=== PATIENT | female | born 1935 | race Caucasian/White ===

== ENCOUNTER 2017-03-10 16:32 | Inpatient (IN) | payer OTHER ==
[~2017-03-10] VITALS: Ht 162.6 cm; Wt 66.5 kg
--- NOTE | ~2017-03-10 | HC ---
[facility] [place] [address] CONSULTATION Name: BHAVANI AGUIRRE Room #: 454-P ADM IN M.R.#: [id number] Admission: 03/10/17 Attend Phys: Darrian Butt MD Discharge: Date of : 35 Report #: [id number] THIS REPORT FOR: //name// CC: Darrian Webster REASON FOR CONSULTATION: I was asked to evaluate concerning bilateral pneumonia. HISTORY OF PRESENT ILLNESS: The patient is an 81-year-old transferred from [facility] for evaluation of pneumonia. She has a history of diabetes, atrial fibrillation with a permanent pacemaker, right mastectomy for breast cancer and chronic kidney disease. She was hospitalized on February 06 with a community-acquired pneumonia. Treated with IV antibiotic therapy, then dismissed on doxycycline and Omnicef. She has had persisting cough. She then returned last week with persistent cough associated with dizziness, nausea and emesis. No fever, chills or sweats. During her workup, she had a CT scan which showed bilateral pulmonary infiltrates. One blood culture grew coag-negative staph, the other one is strep viridans. She had a YANIQUE echocardiogram, which showed no vegetation. She was treated with vancomycin, imipenem, and Levaquin and then switched to cefepime. Continues to have nonproductive cough. Her dizziness has continued. There is no vertigo. No nausea, vomiting now. No diarrhea. No dysuria or frequency. No rash. ALLERGIES: PENICILLIN. Tolerates cephalosporins. Also allergic to SULFA. MEDICATIONS: As noted on her MAR, now on vancomycin and aztreonam. PAST MEDICAL HISTORY: TIAs and stroke, coronary artery disease, DJD, congestive heart failure, asthma, COPD, has a defibrillator, hypertension, atrial fibrillation, she had a mastectomy on the right for breast cancer, diabetes, gout, gastroesophageal reflux, hysterectomy, cataract surgery, stage III kidney disease, hypothyroidism, syncope, and glaucoma. FAMILY HISTORY: Heart disease, diabetes, and hypertension. SOCIAL HISTORY: Past smoker, no significant alcohol intake. REVIEW OF SYSTEMS: As noted above with no additions. PHYSICAL EXAMINATION: VITAL SIGNS: Afebrile, hemodynamically stable. GENERAL: She is alert and cooperative and pleasant, in no acute distress. SKIN: Unremarkable. LYMPH: Unremarkable. She had a right breast mastectomy incision unremarkable. HEENT: Unremarkable. There was no vertigo identified. NECK: Supple. No bruits. [address] [address] CONSULTATION Name: BHAVANI AGUIRRE Room #: 454-P [facility] IN .R.#: [id number] Admission: 03/10/17 Attend Phys: Darrian Butt MD Discharge: Date of : 35 Report #: [id number] HEART: Regular, without murmur. ABDOMEN: Soft, mild tenderness in the epigastric region. No hepatosplenomegaly or mass. CHEST: Crackles heard in the bases bilaterally. No consolidation. EXTREMITIES: Unremarkable. NEUROLOGIC: Nonfocal. LABORATORY STUDIES: Outside blood cultures as noted above. Hemoglobin is 8, white count 7.6, platelet count 223,000. INR 2.3. Sodium 142, potassium 4.2, bicarbonate 31, creatinine 2.6. Liver function tests normal. Albumin 1.9. Differential 57% segs, 24% lymphs, 10% monos, eosinophils, 3%, basophils. BNP 2003 was 127. Chest x-ray, patchy infiltrate, atelectasis in the right mid lung laterally left lung base, small dependent effusions. IMPRESSION: An 81-year-old with recurrent pulmonary infiltrates in the setting of atrial fibrillation, gastroesophageal reflux, chronic obstructive pulmonary disease. She has been on antibiotics now for approximately one month. I am suspecting aspiration may be a component here. She does have a history of stroke and would be concerned that ischemia could be causing some of her dizziness and contributing here. PLAN: I would recommend narrowing her antibiotic coverage. Obtain sputum sample if possible. Would consider video swallow and continue with antacid therapy. We will screen for legionella and fungus. <ELECTRONICALLY SIGNED> By: Fernando Brandon MD 03/12/17 0800 [id number] Fernando Brandon MD /nt
[~2017-03-10 16:32] MED LIST: ACETAMINOPHEN650 M5 PO; ALBUTEROL2.5 MG/0.1 INH; ALLOPURINOL 10100 M1 PO; ASPIRIN EC81 M1 PO; ATENOLOL 25MG T25 M1 PO; ATENOLOL 50 MG50 M1 PO; CARVEDILOL12.5 MG PO; CIPRO250 M1 PO; COUMADIN 2 MG TA2 M1 PO; COUMADIN 5 MG TA5 M1 PO; COZAAR 25 MG TA25 MG PO; COZAAR 50 MG TA50 MG PO; DEMADEX10 MG PO; DIOVAN HCT 1601 EAC1 PO; FISH OIL 1,001000 M1 PO; KLOR-CON PO; LEVAQUIN 500 M500 M4 PO; LUMIGAN2.5 M1 OPHTHALMIC; PACERONE 200 M200 M1 PO; PACERONE 200 M200 MG PO; PREDNISONE 10 M10 M1; PRILOSEC 20 MG20 MG PO; RANITIDINE 150150 M1 PO; SPIRONOLACTONE25 M1 PO; SYNTHROID100 MCG PO; SYNTHROID50 MCG PO; SYNTHROID75 MCG PO; ZANTAC 150MG T150 M1 PO; ZOCOR 20 MG TAB20 M1 PO
[2017-03-10 18:40] VITALS: BP 133/63
[2017-03-10 20:01] VITALS: BP 128/74
[2017-03-10] MEDS ORDERED: ATIVAN0.5 MG PO (21:01)
[2017-03-10] MEDS ORDERED: MAXZIDE-25 MG1 EACH PO (21:01)
[2017-03-10] MEDS ORDERED: LATANOPROST 0.2.5 ML OPHTHALMIC (21:03)
[2017-03-10] MEDS ORDERED: MAXIPIME 1 GM/D51 G1 IV (21:13)
[2017-03-10] MEDS ORDERED: ROBITUSSIN100 MG/53 PO (21:14)
[2017-03-10] MEDS ORDERED: LEVALBUTER1.25 MG/0. INH (21:15)
[2017-03-10] MEDS ORDERED: NYSTATIN 1100000 U/M PO (21:17)
[2017-03-10] MEDS ORDERED: MAG-AL LIQUID30 ML PO (21:17)
[2017-03-10] MEDS ORDERED: PROTONIX40 M1 PO (21:18)
[2017-03-10 21:21] LABS: ABSOLUTE NEUTROPHILS 4.5 thou/uL (1.4-8.2); BASOPHILS 3.4 % (0.0-2.0); EOSINOPHILS 3.4 % (0.0-3.0); HEMATOCRIT 26.7 % (37.0-47.0); HEMOGLOBIN 8.7 gm/dL (12.0-15.0); LYMPHOCYTES 24.9 % (24.0-44.0); MCH 29.9 pg (26.0-34.0); MCHC 32.5 g/dL (28.0-37.0); MCV 92.3 fL (80.0-100.0); MONOCYTES 10.7 % (1.0-8.0); PLATELET COUNT 241 thou/uL (150-400); POLYS 57.6 % (36.0-66.0); RBC 2.89 mil/uL (4.20-5.00); RDW 18.1 % (10.5-14.5); WBC 7.8 thou/uL (4.0-11.0)
[2017-03-10 21:24] LABS: MANUAL DIFF NO
[2017-03-10 21:34] LABS: ANION GAP 7 mmol/L (7-16); BUN 47 mg/dL (7-18); CALCIUM 8.4 mg/dL (8.5-10.1); CHLORIDE 104 mmol/L (98-107); CO2 30 mmol/L (21-32); CREATININE 2.8 mg/dL (0.6-1.0); GLUCOSE 90 mg/dL (74-106); POTASSIUM 4.2 mmol/L (3.5-5.1); SODIUM 141 mmol/L (136-145)
[2017-03-10 21:45] LABS: ALKALINE PHOSPHATASE 69 U/L (46-116); NT-PRO BRAIN NAT PEPTIDE 2327 pg/mL (<300); SGOT 16 U/L (15-37); SGPT 14 U/L (30-65); TOTAL BILIRUBIN 0.4 mg/dL (<0.1-1.0); TOTAL PROTEIN 5.8 g/dL (6.4-8.2); TROPONIN-I < 0.04 ng/mL (<0.04-0.07)
[2017-03-11] VITALS: BP 141/60
[2017-03-11 04:41] VITALS: BP 114/72
[2017-03-11 05:22] LABS: HEMATOCRIT 25.4 % (37.0-47.0); HEMOGLOBIN 8.1 gm/dL (12.0-15.0); MCH 29.5 pg (26.0-34.0); MCHC 31.9 g/dL (28.0-37.0); MCV 92.5 fL (80.0-100.0); RBC 2.75 mil/uL (4.20-5.00); RDW 17.9 % (10.5-14.5); WBC 7.6 thou/uL (4.0-11.0)
[2017-03-11 05:25] LABS: INR 2.3; PROTIME 23.4 Seconds (9.3-11.4)
[2017-03-11 05:31] LABS: ALBUMIN 1.9 g/dL (3.4-5.0); CALCIUM 8.4 mg/dL (8.5-10.1); CREATININE 2.6 mg/dL (0.6-1.0); POTASSIUM 4.2 mmol/L (3.5-5.1); TOTAL BILIRUBIN 0.4 mg/dL (<0.1-1.0); TOTAL PROTEIN 5.7 g/dL (6.4-8.2)
[2017-03-11 08:03] VITALS: BP 127/92
[2017-03-11 11:37] VITALS: BP 125/64
[2017-03-11 12:07] LABS: FOLIC ACID 9.1 ng/mL (8.6-58.9)
[2017-03-11 12:24] LABS: % SATURATION 15 % (20-39); IRON 24 ug/dL (50-170); TIBC 163 ug/dL (250-450); UIBC 139 ug/dL
[2017-03-11 15:14] VITALS: BP 106/86
[2017-03-11 19:11] LABS: HIV ANTIBODY Non Reactive (Non Reactive)
[2017-03-11 19:45] VITALS: BP 130/54
[2017-03-12 03:45] VITALS: BP 106/46
[2017-03-12 04:46] LABS: HEMATOCRIT 25.2 % (37.0-47.0); HEMOGLOBIN 8.1 gm/dL (12.0-15.0); MCH 29.6 pg (26.0-34.0); MCHC 32.1 g/dL (28.0-37.0); MCV 92.4 fL (80.0-100.0); RBC 2.73 mil/uL (4.20-5.00); RDW 18.1 % (10.5-14.5); WBC 9.8 thou/uL (4.0-11.0)
[2017-03-12 05:07] LABS: CREATININE 2.5 mg/dL (0.6-1.0); POTASSIUM 3.7 mmol/L (3.5-5.1)
[2017-03-12 07:49] VITALS: BP 136/55
[2017-03-12 12:11] VITALS: BP 105/48
[2017-03-12 15:54] VITALS: BP 116/51
[2017-03-12 20:00] VITALS: BP 133/45
[2017-03-13 04:00] VITALS: BP 126/41
[2017-03-13 07:38] VITALS: BP 178/52
[2017-03-13 10:19] LABS: HEMATOCRIT 24.8 % (37.0-47.0); HEMOGLOBIN 7.9 gm/dL (12.0-15.0); MCH 29.8 pg (26.0-34.0); MCV 93.1 fL (80.0-100.0); RBC 2.67 mil/uL (4.20-5.00); RDW 17.9 % (10.5-14.5); WBC 8.8 thou/uL (4.0-11.0)
[2017-03-13 10:29] LABS: CALCIUM 7.8 mg/dL (8.5-10.1); CREATININE 2.3 mg/dL (0.6-1.0); POTASSIUM 3.5 mmol/L (3.5-5.1)
[2017-03-13 11:27] VITALS: BP 123/79
[2017-03-13 15:19] VITALS: BP 122/58
[2017-03-13 16:08] LABS: HISTOPLASMA MYCELIAL-ID Negative (Negative)
[2017-03-13 19:37] VITALS: BP 111/49
[2017-03-13 22:07] LABS: HISTOPLASMA MYCELIAL-CF Negative (Neg:<1:2); HISTOPLASMA YEAST BY CF Negative (Neg:<1:2)
[2017-03-14 03:23] VITALS: BP 113/51
[2017-03-14 06:00] LABS: HEMATOCRIT 22.4 % (37.0-47.0); HEMOGLOBIN 7.3 gm/dL (12.0-15.0); MCHC 32.6 g/dL (28.0-37.0); MCV 91.9 fL (80.0-100.0); RBC 2.44 mil/uL (4.20-5.00); WBC 8.1 thou/uL (4.0-11.0)
[2017-03-14 06:14] LABS: CALCIUM 7.3 mg/dL (8.5-10.1); POTASSIUM 3.7 mmol/L (3.5-5.1)
[2017-03-14 07:50] VITALS: BP 120/44
[2017-03-14 17:02] VITALS: BP 130/54
[2017-03-14 18:24] LABS: PROTIME 20.8 Seconds (9.3-11.4)
[2017-03-14 20:00] VITALS: BP 124/55
[2017-03-15 03:59] VITALS: BP 121/58
[2017-03-15 05:25] LABS: HEMATOCRIT 23.8 % (37.0-47.0); HEMOGLOBIN 7.7 gm/dL (12.0-15.0); MCH 30.1 pg (26.0-34.0); MCHC 32.4 g/dL (28.0-37.0); RBC 2.55 mil/uL (4.20-5.00); WBC 8.2 thou/uL (4.0-11.0)
[2017-03-15 05:35] LABS: CALCIUM 7.8 mg/dL (8.5-10.1); CREATININE 1.9 mg/dL (0.6-1.0); POTASSIUM 3.8 mmol/L (3.5-5.1)
[2017-03-15 05:37] LABS: PROTIME 20.9 Seconds (9.3-11.4)
[2017-03-15 07:25] VITALS: BP 139/65
[2017-03-15 10:59] VITALS: BP 122/57
[2017-03-15] MEDS ORDERED: CEFDINIR300 MG PO (14:59)
[2017-03-15] MEDS ORDERED: AZITHROMYCIN 2250 MG PO (14:59)
== END 2017-03-15 17:48 | DRG 682 ==
LOC: 4W 16:32
PROVIDERS: Hospitalist; Internal Medicine; Nurse Practitioner Family; Specialist
DX: N17.9 Acute kidney failure, unspecified (principal); J69.0 Pneumonitis due to inhalation of food and vomit; I13.0 Hypertensive heart and chronic kidney disease with heart failure and stage 1 through stage 4 chronic kidney disease, or unspecified chronic kidney disease; K21.9 Gastro-esophageal reflux disease without esophagitis; I48.2 Chronic atrial fibrillation; J44.9 Chronic obstructive pulmonary disease, unspecified; E11.22 Type 2 diabetes mellitus with diabetic chronic kidney disease; I50.9 Heart failure, unspecified; N18.3 Chronic kidney disease, stage 3 (moderate); I25.10 Atherosclerotic heart disease of native coronary artery without angina pectoris; M19.90 Unspecified osteoarthritis, unspecified site; M10.9 Gout, unspecified; H40.9 Unspecified glaucoma; E78.5 Hyperlipidemia, unspecified; D64.9 Anemia, unspecified; K59.00 Constipation, unspecified; Z79.82 Long term (current) use of aspirin; Z90.11 Acquired absence of right breast and nipple; Z88.0 Allergy status to penicillin; Z88.2 Allergy status to sulfonamides; Z86.73 Personal history of transient ischemic attack (TIA), and cerebral infarction without residual deficits; Z85.3 Personal history of malignant neoplasm of breast; Z87.891 Personal history of nicotine dependence; Z86.14 Personal history of Methicillin resistant Staphylococcus aureus infection; Z95.0 Presence of cardiac pacemaker; Z98.49 Cataract extraction status, unspecified eye; Z90.710 Acquired absence of both cervix and uterus; Z83.3 Family history of diabetes mellitus; Z79.899 Other long term (current) drug therapy; Z82.49 Family history of ischemic heart disease and other diseases of the circulatory system; Z82.0 Family history of epilepsy and other diseases of the nervous system
CPT/HCPCS: 10047

== ENCOUNTER 2017-05-05 20:06 | Inpatient (IN) | payer OTHER ==
[~2017-05-05] VITALS: Ht 162.6 cm; Wt 76.7 kg
--- NOTE | ~2017-05-05 | HC ---
[facility] [place] [address] CONSULTATION Name: BHAVANI AGUIRRE Room #: 457-P ADM IN M.R.#: [id number] Admission: 05/06/17 Attend Phys: Hosea Alfaro MD Discharge: Date of : 35 Report #: [id number] THIS REPORT FOR: //name// CC: Hosea Mann Eleanor DATE OF SERVICE: 05/06/2017 REFERRING PROVIDER: Hosea Alfaro MD REASON FOR CONSULTATION: Hypoxemic respiratory failure. CHIEF COMPLAINT: Shortness of breath. HISTORY OF PRESENT ILLNESS: Our group was asked to see the patient in consultation while hospitalized at [facility]. The patient was seen this morning along with her son who is at the bedside, pleasant 81-year-old woman with a past pulmonary history significant for COPD, had been on bronchodilators at home, recently admitted to [facility] at the end of February of this year for complaints of weight loss and pneumonia. We were not asked to evaluate at that time. The patient subsequently had been discharged to rehab at [facility] and then subsequently to longterm at [facility] in [place], [place] just 3 days ago. The patient declined over the weekend with increasing shortness of breath. Son noted labored breathing and she was subsequently taken to the emergency department at [facility] and subsequently transferred here for further management. The patient noted to have findings of pulmonary edema with pleural effusions and increased pulmonary vascular congestion, placed on BiPAP overnight, no arterial blood gas available to review. The patient responded to diuretics, is now alert, off BiPAP, on low flow supplemental oxygen via nasal cannula. The patient may have had some mild cough with minimal sputum, no fevers or chills. ALLERGIES: Include PENICILLIN AND SULFA. PAST MEDICAL HISTORY: 1. Underlying cardiac history, exact details unclear as the pacer defibrillator in place, typically followed by Dr. Jose Yoder. 2. History of hypertension. 3. History of atrial fibrillation. 4. History of breast cancer status post right mastectomy and chemotherapy in 2000. 5. Gastroesophageal reflux disease. 6. Chronic obstructive pulmonary disease, severity not quantified. 7. Very remote history of tobacco use. 8. History of hysterectomy. 9. Chronic kidney disease stage III. [facility] [address] [place] [address] CONSULTATION Name: BHAVANI AGUIRRE Room #: 457-P [facility] IN ..#: [id number] Admission: 05/06/17 Attend Phys: Hosea Alfaro MD Discharge: Date of : 35 Report #: [id number] 10. Hypothyroidism. 11. History of glaucoma. 12. Anemia of unclear etiology, not worked up last admission. CURRENT INPATIENT MEDICATIONS: 1. Latanoprost eyedrops. 2. Vancomycin IV. 3. Ciprofloxacin IV. 4. Meropenem IV. 5. Methylprednisolone 62.5 mg twice daily. 6. Guaifenesin twice daily. 7. Synthroid 0.075. 8. DuoNebs q. 4 hours. SOCIAL HISTORY: Currently lives in longterm. also recently admitted to longterm in [place], [place] with remote tobacco history. FAMILY HISTORY: Noncontributory due to advanced age. REVIEW OF SYSTEMS: CONSTITUTIONAL: No fevers or chills. ENT: Denies any upper respiratory congestion, rhinorrhea or dysphagia. No prior swallow eval noted. CARDIOVASCULAR: Known cardiac history as described. No chest pain or palpitations. GASTROINTESTINAL: No nausea, vomiting, diarrhea, constipation or abdominal pain. GENITOURINARY: No dysuria, no frequency. INTEGUMENT: Denies any rash. MUSCULOSKELETAL: No joint pains or swelling. Some lower extremity edema noted. PHYSICAL EXAMINATION: VITAL SIGNS: Afebrile, pulse 60s, respiratory rate in the 20s, blood pressure 116/60, oxygen saturation 98% on 4 liters nasal cannula. GENERAL: This is a pleasant elderly woman, somewhat confused, but no distress. ENT: Clear oropharynx, Mallampati 1 airway, no thrush. NECK: Supple. No lymphadenopathy. Jugular venous pressure did appear slightly elevated. LUNGS: Diminished in the bases with occasional expiratory wheeze noted. Minimal basal inspiratory crackles also appreciated. CARDIOVASCULAR: Heart was regular. I did not note any murmurs. ABDOMEN: Soft, nontender, no masses, no hepatosplenomegaly. EXTREMITIES: Revealed trace to 1+ lower extremity edema. They are warm with 2+ pulses noted. Pulses were regular. INTEGUMENT: Without rash. [facility] [address] [place] [address] CONSULTATION Name: BHAVANI AGUIRRE EDUARDO Room #: 457-P [facility] IN M.R.#: [id number] Admission: 05/06/17 Attend Phys: Hosea Alfaro MD Discharge: Date of : 35 Report #: [id number] LABORATORY DATA: White blood cell count 16,000, hemoglobin 7, hematocrit 22, platelet count 129, MCV 80. Sodium 132, potassium 4.2, chloride 98, bicarbonate 23, BUN 31, creatinine 2.0, glucose 151, calcium 7.9, magnesium 1.5, albumin was 2.5. ProBNP was 20,320. I do not see a troponin. Chest x-ray as described. IMPRESSION: 1. Acute on chronic congestive heart failure, suspect some component may be to dietary indiscretion in a longterm facility. 2. Possible healthcare-associated pneumonia. 3. Anemia. Findings suggestive of iron deficiency, although most recent labs did show a low total iron binding capacity. I should argue against that, however, low iron and iron sat noted. 4. Chronic renal insufficiency. 5. Hypomagnesemia. 6. Mild hyponatremia. SUGGEST: 1. Ask cardiology to evaluate. The patient is well known to Dr. Yoder. 2. Consider GI evaluation. Reevaluate iron panel. 3. Continue with systemic steroids with taper. 4. Bronchodilators. 5. Deescalate antibiotics after cultures available. 6. Nasal MRSA screen. 7. Physical and occupational therapy. Assist with mobilization. 8. Additional recommendations to follow. We will follow along with you. Thank you for requesting our suggestions. By: 1154 [id number] Anirudh Jaramillo MD /nt
--- NOTE | ~2017-05-05 | HC ---
[facility] [place] [address] CONSULTATION Name: BHAVANI AGUIRRE Room #: 457-P ADM IN M.R.#: [id number] Admission: 05/06/17 Attend Phys: Hosea Alfaro MD Discharge: Date of : 35 Report #: [id number] THIS REPORT FOR: //name// CC: Hosea Webster DATE OF SERVICE: 05/07/2017 REASON FOR CONSULTATION: Acute on chronic kidney disease. HISTORY OF PRESENT ILLNESS: The patient is extremely well known to our service, followed as an outpatient with a baseline creatinine usually running closer to 2.5 and 2. Has been essentially ill for 4 months with varying combinations of pulmonary infiltrates, COPD exacerbations, volume overload, and heart failure, has now been readmitted to this hospital yesterday with volume overload and possible pneumonia, being treated for both, was given IV furosemide as well as antibiotics. Creatinine raymond from 2 to 2.5 to 2.8. We are asked to see her for further opinions. She has been admitted to several hospitals over these last 4 months including [facility] and [facility] and has been in a couple of different rehabilitations and nursing homes as well, but has not been able to get home. She has had some developing debility; she has also had some positive blood cultures along the way. She was admitted here yesterday with worsening shortness of breath after just a couple of days out of rehab at [facility] and over at the residential. She does have oxygen chronically at night and as a matter of fact is extremely chronically ill even at baseline before all this. As her creatinine has risen with diuresis, we were asked to see her. PAST MEDICAL HISTORY: Severe chronic obstructive pulmonary disease, home oxygen, pacer, defibrillator in place with history of valvular insufficiency, both mitral and tricuspid, previous atrial fibrillation, breast cancer status post mastectomy, and longstanding anemia. CURRENT MEDICATIONS: Listed include furosemide 80 mg IV b.i.d., amiodarone 200 mg daily, aspirin 81 mg daily, cefepime 2 g daily, Cipro 400 mg daily, Colace, Venofer IV, magnesium chloride p.o., Solu Medrol 62.5 mg twice a day, Synthroid 75 mcg daily, and vancomycin IV. FAMILY HISTORY: Noncontributory. SOCIAL HISTORY: Remote smoker. Both she and her are rather ill. He is now in [employer] as well. [address] [address] CONSULTATION Name: BHAVANI AGUIRRE Room #: 457-P [facility] IN [facility].#: [id number] Admission: 05/06/17 Attend Phys: Hosea Alfaro MD Discharge: Date of : 35 Report #: [id number] REVIEW OF SYSTEMS: GENERAL: She is weak, has a poor appetite. EYES: Her vision is reasonably good. ENT: Hearing okay and swallows okay. Denies mouth ulcers. ENDOCRINE: No diabetes. She does have hypothyroidism, on replacement. RESPIRATORY: Very easily short-winded with wheezing, no pleuritic pain. CARDIAC: Chronic and acute swelling of her legs. GASTROINTESTINAL: No nausea or vomiting, but poor appetite. No diarrhea or bloody stools. GENITOURINARY: Beck catheter in place. NEUROLOGIC: Generalized weakness and some memory deficit, but not too bad. MUSCULOSKELETAL: Has had some difficulty with arthritis over the years. PHYSICAL EXAMINATION: GENERAL: This is a chronically ill-appearing elderly lady looking older than her stated age. SKIN: Poor turgor. SKELETAL: Well developed, well nourished. HEENT: Extraocular movements appear to be full. Vision is intact. Hearing is intact. Mucous membranes dry. NECK: Supple. Neck veins are slightly distended. CHEST: Shows bilateral crackles with occasional wheezes. HEART: Regular, but distant. ABDOMEN: Soft and nontender, slightly distended. EXTREMITIES: Shows 2+ lower extremity edema. NEUROLOGIC: Shows generalized weakness. LABORATORY DATA: Urinalysis did not show evidence of infection or inflammation nor did it show proteinuria. Hemoglobin is only 6.7. Iron stores are very well. Albumin is 2.5 and creatinine is 2.7. ASSESSMENT: Acute on chronic kidney disease. She has very longstanding chronic kidney disease with kidneys without water reserve or compensation, certainly behaves more or less as a stage 4 chronic kidney disease. She has got smallish kidneys with thin cortices, also chronic damage, not much ability to compensate. She also has heart trouble, particularly valvular and chronic obstructive pulmonary disease with right-sided heart failure and cor pulmonale sequestering fluids, now recurrent exacerbations of chronic obstructive pulmonary disease, but she is on IV steroids, she has got some IV furosemide as well with it. That has made a difference, the antibiotics with steroids have made a difference, certainly hard to determine. She has had some urine output over a liter yesterday. In any event, her breathing is easier, but her creatinine is up, blood pressure is on the low side for sure but she is not on any medicines that would lower it further. Very difficult to determine the ideal state of fluid volume in this patient. She is on IV Lasix, probably will need to be stopped if her creatinine continues to rise despite the edema in her legs, probably need to [facility] [address] [place] [address] CONSULTATION Name: BHAVANI AGUIRRE Room #: 457-P [facility] IN .R.#: [id number] Admission: 05/06/17 Attend Phys: Hosea Alfaro MD Discharge: Date of : 35 Report #: [id number] keep those legs elevated in any regard and try to get some of that back into the central system. We will follow her along, but this will not be an easy case to manage with multisystem failure. She is extremely chronically ill to start with and has been acutely ill for 4 months and I really do hold out much hope for meaningful quality of life down the line. By: 19 23 Jesus Chairez MD /nt
--- NOTE | ~2017-05-05 | 2DMMODE ---
[facility] [address] [place] [address] 2 D/M-MODE ECHOCARDIOGRAM Name: AGUIRREBHAVANI Room #: 457-P ADM IN M.R.#: [id number] Admission: 05/06/17 Attend Phys: Yusra Alonzo Discharge: Date of : 35 Date of Service: 05/06/17 1706 Report #: [id number] THIS REPORT FOR: //name// APPROVED REPORT Study performed: 05/06/2017 14:50:18 EXAM: Comprehensive 2D, Doppler, and color-flow Echocardiogram Patient Location: Bedside Room #: [facility] Status: routine Other Information Study Quality: Adequate Indications Congestive Heart Failure Hx: ICD, ISCM, Afib, COPD 2D Dimensions RVDd: 48.62 mm LVEF(%): 42.32 (>50%) IVSd: 10.10 (7-11mm) LVOT Diam: 20.98 (18-24mm) LVDd: 59.60 mm PWd: 7.00 (7-11mm) Ascending Ao: 35.48 (22-36mm) LVDs: 46.98 (25-40mm) Aortic Root: 37.66 mm Dvaies's LVEF: 42.32 % Volumes Left Atrial Volume (Systole) Single Plane 4CH: 56.27 mL Single Plane 2CH: 72.21 mL LA ESV Index: 38.00 mL/m2 Aortic Valve AoV Peak Rich.: 1.52 m/s AO Peak Gr.: 9.20 mmHg LVOT Max P.77 mmHg LVOT Max V: 0.97 m/s JAILENE Vmax: 2.21 cm2 Mitral Valve E/A Ratio: 2.8 MV Decel. Time: 133.89 ms MV E Max Rich.: 1.41 m/s MV A Rich.: 0.50 m/s MV PHT: 38.83 ms [facility] [place] [address] 2 D/M-MODE ECHOCARDIOGRAM Name: TALON AGUIRREJED CLARK Room #: 457-P [facility] IN .R.#: [id number] Admission: 05/06/17 Attend Phys: Yusra Alonzo Discharge: Date of : 35 Date of Service: 05/06/17 1706 Report #: [id number] IVRT: 69.20 ms Pulmonary Valve PV Peak Rich.: 0.87 m/s PV Peak Gr.: 3.02 mmHg Tricuspid Valve TR Peak Rich.: 3.21 m/s RAP Estimate: 10.00 mmHg TR Peak Gr.: 41.24 mmHg PA Pressure: 51.00 mmHg Left Ventricle Left ventricle is mildly dilated. There is normal left ventricular wall thickness. Left ventricular systolic function is moderately decreased. LVEF is 40%. Grade III diastolic dysfunction Right Ventricle Right ventricle is mildly dilated. Right ventricle is mildly hypokinetic. Device lead is present in the right ventricle. Atria Left atrium is mildly dilated. Right atrium is mildly dilated. Aortic Valve Aortic valve leaflets are mildly sclerotic Trace aortic regurgitation. There is no aortic valvular stenosis. Mitral Valve Mild mitral annular calcification. Moderate mitral regurgitation. No evidence of mitral valve stenosis. Tricuspid Valve The tricuspid valve is normal in structure. There is mild tricuspid regurgitation. The right atrial pressure is estimated at 10 mmHg. There is moderate pulmonary hypertension with an estimated PAP 50-55mmHg. Pulmonic Valve The pulmonary valve is normal in structure. Trace pulmonic regurgitation. Great Vessels Aortic root is borderline dilated. The ascending aorta is normal in size. IVC is dilated and collapses <50% with inspiration. [facility] [address] [place] [address] 2 D/M-MODE ECHOCARDIOGRAM Name: TALON AGUIRREJED CLARK Room #: 457-P [facility] IN [facility].#: [id number] Admission: 05/06/17 Attend Phys: Yusra Alonzo Discharge: Date of : 35 Date of Service: 05/06/17 1706 Report #: [id number] Pericardium There is no pericardial effusion. A left and right pleural effusion was noted. <Conclusion> Left ventricular systolic function is moderately decreased. LVEF is 40%. Grade III diastolic dysfunction Both atria are mildly dilated. Aortic valve leaflets are mildly sclerotic, no aortic stenosis. Mild mitral annular calcification. Moderate mitral regurgitation. Pulmonary artery pressure of 40-45mmHg There is no pericardial effusion. <ELECTRONICALLY SIGNED> By: Jose Yoder MD, FACC 05/06/171705 05 05 Jose Yoder MD, FAC /INF
--- NOTE | ~2017-05-05 | H ---
[facility] [place] [address] HISTORY AND PHYSICAL Name: BHAVANI AGUIRRE Room #: 457-P ADM IN M.R.#: [id number] Admission: 05/06/17 Attend Phys: Hosea Alfaro MD Discharge: Date of : 35 Report #: [id number] THIS REPORT FOR: //name// CC: Hosea Webster DICTATED BY: Gayatri OSORIO ATTENDING PHYSICIAN: Darrian Butt M.D. PRIMARY CARE PHYSICIAN: Johnathan Webster DO. CHIEF COMPLAINT: Respiratory failure. HISTORY OF PRESENT ILLNESS: The patient is an 81-year-old female who was recently admitted here at [facility] in February of this year for zbcyo-yr-trrevxe kidney disease as well as healthcare-acquired pneumonia. She was treated with IV antibiotics and was discharged to [facility] on March 15. She just finished her rehab stay at [facility] last Saturday, which was 3 days ago and went to [facility] where she is planning to stay retirement. Her also lives at the same facility after extended hospital stays of his own. She also has known COPD. Her son states that she has been on and off oxygen in the last few months, but at home at times, she would wear 2 liters just at night. She has also developed CHF. Her last known BNP was 2745. She had echocardiogram done in February, which showed a normal EF of 50% to 55%, with no segmental wall motion abnormalities. During her admission in February, her creatinine had been up to 2.8 and then was down to 1.9 by the time she was discharged. She has been tried on various diuretics. At one point, she had also developed positive blood cultures. Her antibiotics had been adjusted multiple times. She ended up having YANIQUE done, which showed no vegetation. She was transferred from the [facility] facility to [facility] ER last night due to respiratory distress. Apparently, this came on rather suddenly and she was placed on BiPAP in the ER there. She did request to come back to [facility] because her doctors are here. She arrived on 10 liters nonrebreather and is very tachypneic. She does remain alert and is able to answer most questions. She is coughing frequently. She states she has been coughing up some green-colored thick sputum, but it is currently clear. Prior to transfer, she did receive IV antibiotics as well as Solu-Medrol and breathing treatments. She states her breathing is somewhat better. She will be admitted for further evaluation. PAST MEDICAL HISTORY: Recent healthcare-acquired pneumonia; stroke versus transient ischemic attack; coronary artery disease; CHF with a normal EF; COPD; hypertension; atrial fibrillation; GERD; iron-deficiency anemia; diabetes, not currently on any medication; history of MRSA; breast cancer; chronic kidney [address] [address] HISTORY AND PHYSICAL Name: BHAVANI AGUIRRE Room #: 457-P ADM IN M.R.#: [id number] Admission: 05/06/17 Attend Phys: Hosea Alfaro MD Discharge: Date of : 35 Report #: [id number] disease stage 3; hypothyroidism and glaucoma. PAST SURGICAL HISTORY: Defibrillator placement, mastectomy on the right, hysterectomy, cataract lens implant and bilateral tubal ligation. ALLERGIES: PENICILLINS and SULFA. CURRENT MEDICATIONS: Not currently available from [facility], but have been requested. SOCIAL HISTORY: The patient had been living at home with her spouse prior to the multiple extended hospitalizations between both her and her . He is currently at [facility]. She has been a smoker in the past years. No alcohol or drug use. She had been ambulating with a walker. FAMILY HISTORY: Significant for heart disease, diabetes, hypertension and Alzheimers. REVIEW OF SYSTEMS: A 12-point review of systems was reviewed with the patient. Otherwise negative unless stated in the HPI and prior records were reviewed. PHYSICAL EXAMINATION: GENERAL: The patient is an alert female in mild respiratory distress with tachypnea. VITAL SIGNS: Temperature is 98.9, heart rate is 68, respirations are 22 and blood pressure is 155/92. HEENT: PERRLA. Sclerae are nonicteric. Oral mucosa is pink and moist. NECK: Mild JVD is noted. CARDIAC: Heart tones are irregular, but no murmurs, rubs or gallops. RESPIRATORY: Breath sounds are clear, bilateral upper lobes. She does have some fine crackles in both bases, worse on the left than the right. Breathing is still somewhat labored and she is currently being placed on BiPAP. ABDOMEN: Round, soft, nontender and nondistended. She is using her abdominal muscles for breathing. VASCULAR: She does have bilateral lower extremity edema, 3+ bilaterally. Pedal pulses are 1+. Feet are warm. NEUROLOGIC: The patient is alert and oriented and fully aware of what is going on. She will follow all commands and is able to move all extremities equally. She does have some generalized weakness of the bilateral lower extremities, but no focal deficits. LABS AND DIAGNOSTICS: Blood work from [place] showed a WBC of 14.9, hemoglobin 7.6 and platelets 222,000. Sodium 131, potassium 4.4, BUN 32, creatinine 2.0 and glucose 130. Lactate is 1.0, magnesium 1.7. LFTs are within normal limits. BNP is 12,000. Troponins negative. INR is 3.49. U/A showed moderate leukocyte esterase, 20 to 30 wbcs, positive squamous cells and positive [facility] [address] [place] [address] HISTORY AND PHYSICAL Name: BHAVANI AGUIRRE Room #: 457-P ADM IN ..#: [id number] Admission: 05/06/17 Attend Phys: Hosea Alfaro MD Discharge: Date of : 35 Report #: [id number] bacteria. ASSESSMENT AND PLAN: 1. Rfhux-fr-kdsqzoy respiratory failure. The patient remains hypoxic. We will place her on BiPAP, breathing treatments and continue with IV steroids and mucolytics. We will consult pulmonary for further recommendations. The patient does not wish to be intubated at any time. 2. Kwjra-rj-ipmukya probable diastolic heart failure. Last known EF was normal. She does have some minor valvular insufficiencies that may be contributing. We will give a dose of IV Lasix and monitor urine output. We do need to be cautious with diuretics as she does have some chronic kidney disease stage 3. We will place her on a low sodium diet and fluid restriction. 3. Anemia. This is chronic. Her last known hemoglobin at discharge was 7.7. The patient denies seeing any black stools . Her most recent iron level was 24. Start iron supplementation. 4. Chronic kidney disease, stage 3. Last known creatinine earlier this year was 1.9, so she is at her baseline. Monitor renal status closely with these diuretics. 5. Possible pneumonia. We will consider this healthcare acquired. We will give IV antibiotics as well as Lasix and breathing treatments and hopefully this combination improves her respiratory status. Follow blood cultures. 6. Diabetes. It does not look like she is on any current medications. We will follow blood sugars and if elevated, add sliding scale insulin. 7. Atrial fibrillation, on Coumadin and her recent INR apparently was fixed and Coumadin has been held. Her INR is now down to 3.49. There are no signs of bleeding. We will continue to hold Coumadin today and repeat an INR in the morning. 8. Hypothyroidism. Continue Synthroid as at home. 9. DVT prophylaxis, place SCDs. 10. Code status: The patient has been very clear she wishes to be a DNR and DNI. The patient and family are okay with BiPAP and IV antibiotics at this time. We will continue to monitor. We will continue to follow the patient closely throughout the hospitalization and make changes based on clinical status. By: [id number] Darrian Butt MD /nt
[~2017-05-05 20:06] MED LIST changes: +ATIVAN0.5 MG PO; +AZITHROMYCIN 2250 MG PO; +CEFDINIR300 MG PO; +LATANOPROST 0.2.5 ML OPHTHALMIC; +LEVALBUTER1.25 MG/0. INH; +MAG-AL LIQUID30 ML PO; +MAXIPIME 1 GM/D51 G1 IV; +MAXZIDE-25 MG1 EACH PO; +NYSTATIN 1100000 U/M PO; +PROTONIX40 M1 PO; +ROBITUSSIN100 MG/53 PO
[2017-05-06 02:36] LABS: HEMATOCRIT 21.9 % (37.0-47.0); MCH 27.6 pg (26.0-34.0); MCHC 32.1 g/dL (28.0-37.0); RBC 2.55 mil/uL (4.20-5.00); RDW 17.8 % (10.5-14.5); WBC 16.4 thou/uL (4.0-11.0)
[2017-05-06 02:49] LABS: INR 2.7; PROTIME 26.2 Seconds (9.3-11.4)
[2017-05-06 03:01] LABS: ALBUMIN 2.5 g/dL (3.4-5.0); CALCIUM 7.9 mg/dL (8.5-10.1); MAGNESIUM 1.5 mg/dL (1.8-2.4); POTASSIUM 4.2 mmol/L (3.5-5.1); TOTAL BILIRUBIN 0.4 mg/dL (<0.1-1.0); TOTAL PROTEIN 6.2 g/dL (6.4-8.2)
[2017-05-06 03:25] VITALS: BP 118/56
[2017-05-06 07:19] VITALS: BP 131/58
[2017-05-06 07:41] LABS: URINE BILIRUBIN NEGATIVE (Negative); URINE BLOOD 1+ (Negative); URINE COLOR YELLOW; URINE GLUCOSE-RANDOM* NEGATIVE (Negative); URINE KETONES NEGATIVE (Negative); URINE LEUKOCYTES-REFLEX NEGATIVE (Negative); URINE PROTEIN (DIPSTICK) NEGATIVE (Negative); URINE SPECIFIC GRAVITY <= 1.005 (1.003-1.035); URINE UROBILINOGEN 0.2 E.U./dl (0.2-1.0)
[2017-05-06 08:21] LABS: AMORPHOUS URATES Moderate /LPF (None Seen); CASTS None Seen /LPF (None Seen); SQUAMOUS None Seen /LPF (0-3); URINE RBC None Seen /HPF (0-2); URINE WBC-REFLEX None Seen /HPF (0-5)
[2017-05-06 10:43] LABS: ABSOLUTE RETIC COUNT 0.0298 10^6/uL; OBSERVED RETIC COUNT 1.19 % (0.6-2.6)
[2017-05-06 10:49] LABS: % SATURATION 5 % (20-39); IRON 10 ug/dL (50-170); TIBC 222 ug/dL (250-450); UIBC 212 ug/dL
[2017-05-06 11:12] VITALS: BP 116/60
[2017-05-06 12:24] LABS: HEMATOCRIT 22.4 % (37.0-47.0); HEMOGLOBIN 7.1 gm/dL (12.0-15.0)
[2017-05-06 15:42] VITALS: BP 130/65
[2017-05-06 18:15] LABS: HEMOGLOBIN 7.1 gm/dL (12.0-15.0)
[2017-05-06 19:37] VITALS: BP 106/60
[2017-05-07 00:35] LABS: HEMOGLOBIN 6.8 gm/dL (12.0-15.0)
[2017-05-07 00:37] LABS: HEMATOCRIT 21.2 % (37.0-47.0)
[2017-05-07 06:10] LABS: HEMOGLOBIN 6.7 gm/dL (12.0-15.0); MCHC 32.6 g/dL (28.0-37.0); WBC 16.6 thou/uL (4.0-11.0)
[2017-05-07 06:12] LABS: HEMATOCRIT 20.6 % (37.0-47.0); MCH 27.8 pg (26.0-34.0); MCV 85.3 fL (80.0-100.0); RBC 2.41 mil/uL (4.20-5.00); RDW 17.8 % (10.5-14.5)
[2017-05-07 06:21] LABS: CALCIUM 8.6 mg/dL (8.5-10.1); CREATININE 2.5 mg/dL (0.6-1.0); POTASSIUM 3.5 mmol/L (3.5-5.1)
[2017-05-07 08:01] VITALS: BP 126/65
[2017-05-07 11:45] LABS: CALCIUM 8.6 mg/dL (8.5-10.1); CREATININE 2.7 mg/dL (0.6-1.0); POTASSIUM 3.3 mmol/L (3.5-5.1)
[2017-05-07 11:46] LABS: MAGNESIUM 1.7 mg/dL (1.8-2.4)
[2017-05-07 15:00] VITALS: BP 116/68; BP 144/70
[2017-05-07 16:19] VITALS: BP 122/102
[2017-05-07 20:39] VITALS: BP 144/70
[2017-05-08 05:35] VITALS: BP 145/61
[2017-05-08 06:11] LABS: HEMATOCRIT 25.4 % (37.0-47.0); HEMOGLOBIN 8.2 gm/dL (12.0-15.0); MCH 27.4 pg (26.0-34.0); MCHC 32.3 g/dL (28.0-37.0); MCV 84.8 fL (80.0-100.0); RDW 17.9 % (10.5-14.5); WBC 14.2 thou/uL (4.0-11.0)
[2017-05-08 06:28] LABS: ALBUMIN 2.9 g/dL (3.4-5.0); CALCIUM 8.7 mg/dL (8.5-10.1); CREATININE 2.8 mg/dL (0.6-1.0); PHOSPHORUS 4.6 mg/dL (2.5-4.9); POTASSIUM 3.4 mmol/L (3.5-5.1)
[2017-05-08 06:52] VITALS: BP 116/61
[2017-05-08 12:17] VITALS: BP 137/66
[2017-05-08 15:11] VITALS: BP 143/74
[2017-05-08 19:11] VITALS: BP 131/67
[2017-05-09 04:56] VITALS: BP 137/65
[2017-05-09 06:02] LABS: HEMOGLOBIN 7.9 gm/dL (12.0-15.0); MCHC 32.8 g/dL (28.0-37.0); MCV 85.3 fL (80.0-100.0); RBC 2.81 mil/uL (4.20-5.00); RDW 17.9 % (10.5-14.5); WBC 8.6 thou/uL (4.0-11.0)
[2017-05-09 06:23] LABS: ALBUMIN 2.6 g/dL (3.4-5.0); CALCIUM 8.8 mg/dL (8.5-10.1); CREATININE 2.8 mg/dL (0.6-1.0); PHOSPHORUS 4.5 mg/dL (2.5-4.9); POTASSIUM 3.5 mmol/L (3.5-5.1)
[2017-05-09 07:43] VITALS: BP 155/87
[2017-05-09 10:54] LABS: URINE BILIRUBIN NEGATIVE (Negative); URINE BLOOD 3+ (Negative); URINE COLOR YELLOW; URINE GLUCOSE-RANDOM* NEGATIVE (Negative); URINE KETONES NEGATIVE (Negative); URINE LEUKOCYTES-REFLEX 1+ (Negative); URINE PROTEIN (DIPSTICK) 1+ (Negative); URINE UROBILINOGEN 0.2 E.U./dl (0.2-1.0)
[2017-05-09 11:07] LABS: SQUAMOUS 4-10 Moderate /LPF (0-3); URINE RBC >20 Many /HPF (0-2)
[2017-05-09 11:08] LABS: CRYSTALS None Seen /LPF (None Seen); HYALINE CASTS 0-3 Few /LPF (None Seen); URINE WBC-REFLEX 0-5 Rare /HPF (0-5)
[2017-05-09 12:52] VITALS: BP 129/61
[2017-05-09 14:23] LABS: ALBUMIN 2.8 g/dL (3.4-5.0); CALCIUM 9.1 mg/dL (8.5-10.1); POTASSIUM 3.9 mmol/L (3.5-5.1); TOTAL BILIRUBIN 0.5 mg/dL (<0.1-1.0); TOTAL PROTEIN 6.5 g/dL (6.4-8.2); TROPONIN-I 0.07 ng/mL (<0.04-0.07)
[2017-05-09 16:34] VITALS: BP 146/78
[2017-05-09 19:37] VITALS: BP 135/57
[2017-05-10 06:04] LABS: HEMATOCRIT 25.6 % (37.0-47.0); HEMOGLOBIN 8.3 gm/dL (12.0-15.0)
[2017-05-10 06:28] LABS: ALBUMIN 2.7 g/dL (3.4-5.0); CALCIUM 9.1 mg/dL (8.5-10.1); CREATININE 2.9 mg/dL (0.6-1.0); PHOSPHORUS 4.7 mg/dL (2.5-4.9); POTASSIUM 4.3 mmol/L (3.5-5.1)
[2017-05-10 08:15] VITALS: BP 125/76
[2017-05-10 12:00] VITALS: BP 150/75
[2017-05-10] MEDS ORDERED: LORAZEPAM I2 MG/1 M2 SUBLING (13:10)
[2017-05-10] MEDS ORDERED: MSL20MG/ML PO (13:12)
== END 2017-05-10 16:57 | DRG 871 ==
LOC: 2N 20:06 → 4W 05-06 00:10
PROVIDERS: Hospitalist; Internal Medicine; Internal Medicine Nephrology; Internal Medicine Pulmonary Disease; Nurse Practitioner Acute Care; Nurse Practitioner Adult Health
PROC: 5A09357 Assistance with Respiratory Ventilation, Less than 24 Consecutive Hours, Continuous Positive Airway Pressure (ICD-10-PCS; principal; 2017-05-06)
PROC: 30233N1 Transfusion of Nonautologous Red Blood Cells into Peripheral Vein, Percutaneous Approach (ICD-10-PCS; 2017-05-07)
DX: A41.9 Sepsis, unspecified organism (principal); J96.20 Acute and chronic respiratory failure, unspecified whether with hypoxia or hypercapnia; J18.9 Pneumonia, unspecified organism; I50.23 Acute on chronic systolic (congestive) heart failure; G93.40 Encephalopathy, unspecified; I13.0 Hypertensive heart and chronic kidney disease with heart failure and stage 1 through stage 4 chronic kidney disease, or unspecified chronic kidney disease; J44.0 Chronic obstructive pulmonary disease with (acute) lower respiratory infection; E87.1 Hypo-osmolality and hyponatremia; D68.59 Other primary thrombophilia; N17.9 Acute kidney failure, unspecified; D68.9 Coagulation defect, unspecified; I42.9 Cardiomyopathy, unspecified; K21.9 Gastro-esophageal reflux disease without esophagitis; N18.3 Chronic kidney disease, stage 3 (moderate); E03.9 Hypothyroidism, unspecified; E83.42 Hypomagnesemia; E11.22 Type 2 diabetes mellitus with diabetic chronic kidney disease; Z96.1 Presence of intraocular lens; I25.10 Atherosclerotic heart disease of native coronary artery without angina pectoris; K59.00 Constipation, unspecified; I48.0 Paroxysmal atrial fibrillation; E78.00 Pure hypercholesterolemia, unspecified; R13.10 Dysphagia, unspecified; D50.9 Iron deficiency anemia, unspecified; Z88.0 Allergy status to penicillin; Z88.2 Allergy status to sulfonamides; Z85.3 Personal history of malignant neoplasm of breast; Z90.710 Acquired absence of both cervix and uterus; Z87.891 Personal history of nicotine dependence; Z95.810 Presence of automatic (implantable) cardiac defibrillator; Z98.42 Cataract extraction status, left eye; Z98.41 Cataract extraction status, right eye; Z82.49 Family history of ischemic heart disease and other diseases of the circulatory system; Z83.3 Family history of diabetes mellitus; Z81.8 Family history of other mental and behavioral disorders; Z91.041 Radiographic dye allergy status; Z90.11 Acquired absence of right breast and nipple; Z99.81 Dependence on supplemental oxygen
CPT/HCPCS: 10045